=== PATIENT | female | born 1975 | race African-American/Black ===

== ENCOUNTER 2019-04-20 05:50 | Inpatient (IN) ==
[2019-04-20 07:09] LABS: Albumin 3.9 G/DL (3.4-5.0); Bilirubin,Total 0.5 MG/DL (0.2-1.0); Calcium 9.3 MG/DL (8.5-10.1); Osmolality,Calculated 279.4 MOS/KG (273-304); Total Protein 7.8 G/DL (6.4-8.3)
[2019-04-20] MEDS: LACTATED RINGERS 1,000 ML IV SCH ×2 (07:10→18:32)
[2019-04-20 07:29] LABS: Basophils # 0.1 10*3/uL (0.0-0.2); Basophils % 1.2 % (0.0-0.8); Eosinophils # 0.2 10*3/uL (0.0-0.87); Eosinophils % 3.9 % (0.00-10.9); Hematocrit 35.1 VOL% (35.7-47.0); Immature Granulocytes % 0.4 %; Immature Granulocytes Absolute 0.02 #; Lymphocytes # 2.2 10*3/uL (1.4-4.0); Lymphocytes % 42.4 % (21.3-54.2); Mean Corpuscular HGB Conc 28.5 GM/DL (32-36); Mean Corpuscular Volume 80.7 FL (87-102); Mean Platelet Volume 10.8 FL (9.6-12.0); Monocytes % 7.6 % (1.7-12.7); Neutrophils % 44.5 % (38.7-73.9); Platelet Count 392 T/CUMM (130-400); Red Blood Count 4.35 MC/CUMM (3.8-5.5); Red Cell Distribution Width 16.2 % (9.3-17.3); White Blood Count 5.2 T/CUMM (4-12)
[2019-04-20] MEDS ORDERED: DIAZEPAM 5 MG TABLET PO ONE (07:32)
[2019-04-20] MEDS ORDERED: FAMOTIDINE 20 MG TABLET PO ONE (07:32)
[2019-04-20 07:38] LABS: Hypochromasia 1+; Ovalocytes Slight; Platelet Estimate Adequate
[2019-04-20] MEDS ORDERED: DIAZEPAM 5 MG TABLET ONE (08:14)
[2019-04-20] MEDS ORDERED: FAMOTIDINE 20 MG TABLET ONE (08:14)
[2019-04-20] MEDS ORDERED: VASOPRESSIN 20 UNITS/ML VIAL ONE (08:26)
[2019-04-20] MEDS ORDERED: DEXAMETHASONE 4 MG/1 ML VIAL ONE ×3 (08:27→12:15)
[2019-04-20] MEDS ORDERED: BUPIVACAINE 0.5% 50 ML VIAL ONE (08:27)
[2019-04-20] MEDS ORDERED: BUPIVACAINE MPF 0.25% 30 ML VIAL ONE (08:46)
[2019-04-20] MEDS ORDERED: fentaNYL 100 MCG/2 ML VIAL ONE (08:46)
[2019-04-20] MEDS ORDERED: MIDAZOLAM 2 MG/2 ML VIAL ONE ×2 (08:46→12:15)
[2019-04-20] MEDS ORDERED: EPINEPHrine 1 MG/ML VIAL ONE (08:47)
[2019-04-20] MEDS ORDERED: cefOXitin 3,000 MG in SYRINGE 1 EACH IV ONE (09:00)
[2019-04-20] MEDS ORDERED: ceFAZolin 1,000 MG VIAL ONE (09:26)
[2019-04-20] MEDS ORDERED: SEVOFLURANE 1 UNIT/15 MINUTE INH ONE (12:14)
[2019-04-20] MEDS ORDERED: PROPOFOL 200 MG/20 ML VIAL IV ONE (12:14)
[2019-04-20] MEDS ORDERED: ePHEDrine 50 MG/ML AMP ONE (12:15)
[2019-04-20] MEDS ORDERED: ONDANSETRON 4 MG/2 ML VIAL ONE ×2 (12:15→12:38)
[2019-04-20] MEDS ORDERED: GLYCOPYRROLATE 0.4 MG/2 ML VIAL ONE ×2 (12:15)
[2019-04-20] MEDS ORDERED: KETOROLAC 30 MG/1 ML VIAL ONE (12:15)
[2019-04-20] MEDS ORDERED: SUFentanil 50 MCG/ML AMP ONE (12:15)
[2019-04-20] MEDS ORDERED: NEOSTIGMINE 10 MG/10 ML VIAL ONE (12:16)
[2019-04-20] MEDS ORDERED: LACTATED RINGERS 2,000 ML IV ONE (12:16)
[2019-04-20] MEDS ORDERED: PHENYLEPHRINE 1 MG/10 ML SYRINGE IV ONE (12:16)
[2019-04-20] MEDS ORDERED: ROCURONIUM 100 MG/10 ML VIAL IV ONE (12:16)
[2019-04-20 12:28] LABS: Apearance,Urine CLEAR (Clear); Bacteria,Urine Occasional /HPF (Few); Bilirubin,Urine Negative (Negative); Blood, Urine Small mg/dL (Negative); Glucose,Urine (UA) Negative (Negative); Ketones,Urine Negative (Negative); Mucus,Urine Occasional /LPF (Occasional); Nitrite,Urine Negative (Negative); Protein,Urine Negative; RBC,Urine 1 /HPF (0-4); Urine Color Yellow (Yellow); Urine Specific Gravity 1.013 (1.001-1.035); Urine Urobilinogen < 2.0 EU/DL (0.2-1.0); WBC,Urine 1 /HPF (0-6)
[2019-04-20] MEDS ORDERED: MEPERIDINE 25 MG/1 ML VIAL IV PRN (12:36)
[2019-04-20] MEDS ORDERED: ONDANSETRON 4 MG/2 ML VIAL IV PRN ×2 (12:36→13:42)
[2019-04-20] MEDS ORDERED: HYDROmorphone 2 MG/1 ML VIAL IV PRN (12:36)
[2019-04-20] MEDS ORDERED: PROMETHAZINE INJ 25 MG in SODIUM CHLORIDE 0.9% 50 ML IV PRN (12:36)
[2019-04-20] MEDS ORDERED: MEPERIDINE 25 MG/1 ML VIAL ONE (12:38)
[2019-04-20] MEDS ORDERED: PROMETHAZINE 25 MG/1 ML VIAL ONE (12:38)
[2019-04-20] MEDS ORDERED: BENZOCAINE/MENTHOL LOZENGE 18/BOX PO PRN (13:42)
[2019-04-20] MEDS ORDERED: BISACODYL 10 MG SUPP RECTAL PRN (13:42)
[2019-04-20] MEDS ORDERED: KETOROLAC 30 MG/1 ML VIAL IM SCH (13:42)
[2019-04-20] MEDS: HYDROmorphone 2 MG/1 ML VIAL IV PRN ×4 (14:00→22:10)
[2019-04-20] MEDS: KETOROLAC 30 MG/1 ML VIAL IV SCH ×2 (18:05→23:52)
[2019-04-20] MEDS: ceFAZolin 1,000 MG in SYRINGE 1 EACH IV SCH (18:12)
[2019-04-21] MEDS: LACTATED RINGERS 1,000 ML IV SCH ×2 (00:52→06:15)
[2019-04-21] MEDS: ceFAZolin 1,000 MG in SYRINGE 1 EACH IV SCH (01:51)
[2019-04-21 05:22] LABS: Basophils % 0.2 % (0.0-0.8); Hematocrit 25.3 VOL% (35.7-47.0); Hemoglobin 7.2 GM/DL (12.0-16.0); Immature Granulocytes % 0.6 %; Immature Granulocytes Absolute 0.05 #; Lymphocytes # 0.9 10*3/uL (1.4-4.0); Lymphocytes % 10.8 % (21.3-54.2); Mean Corpuscular HGB Conc 28.5 GM/DL (32-36); Mean Corpuscular Volume 81.1 FL (87-102); Mean Platelet Volume 9.9 FL (9.6-12.0); Monocytes % 5.8 % (1.7-12.7); Neutrophils % 82.6 % (38.7-73.9); Platelet Count 308 T/CUMM (130-400); Red Blood Count 3.12 MC/CUMM (3.8-5.5); Red Cell Distribution Width 16.3 % (9.3-17.3); White Blood Count 8.3 T/CUMM (4-12)
[2019-04-21] MEDS: KETOROLAC 30 MG/1 ML VIAL IV SCH ×2 (05:45→12:23)
[2019-04-21 05:58] LABS: Osmolality,Calculated 278.4 MOS/KG (273-304)
[2019-04-21 06:25] LABS: Anisocytosis Slight; Microcytosis 2+
[2019-04-21 06:27] LABS: Hypochromasia 1+; Ovalocytes Few; Polychromasia Slight
[2019-04-21 06:28] LABS: Platelet Estimate Normal
[2019-04-21] MEDS: amLODIPine 10 MG TABLET PO SCH (08:45)
[2019-04-21] MEDS: LISINOPRIL/HCTZ 20-25 MG TABLET PO SCH (08:46)
[2019-04-21] MEDS: PANTOPRAZOLE 40 MG TABLET PO SCH (09:23)
[2019-04-21] MEDS: FERROUS SULFATE 325 MG TABLET PO SCH ×2 (09:23→21:04)
[2019-04-21] MEDS: DOCUSATE SODIUM 100 MG CAPSULE PO PRN ×2 (09:23→21:04)
[2019-04-21] MEDS: IBUPROFEN 800 MG TABLET PO SCH (18:39)
[2019-04-21] MEDS: MAGNESIUM HYDROXIDE SUSP 30 ML UDCUP PO PRN (21:04)
[2019-04-22] MEDS: IBUPROFEN 800 MG TABLET PO SCH ×3 (02:01→18:47)
[2019-04-22] MEDS: DOCUSATE SODIUM 100 MG CAPSULE PO PRN ×2 (08:35→20:57)
[2019-04-22] MEDS: MAGNESIUM HYDROXIDE SUSP 30 ML UDCUP PO PRN ×2 (08:35→20:57)
[2019-04-22] MEDS: amLODIPine 10 MG TABLET PO SCH (08:35)
[2019-04-22] MEDS: LISINOPRIL/HCTZ 20-25 MG TABLET PO SCH (08:35)
[2019-04-22] MEDS: PANTOPRAZOLE 40 MG TABLET PO SCH (08:35)
[2019-04-22] MEDS: FERROUS SULFATE 325 MG TABLET PO SCH ×2 (08:35→20:51)
[2019-04-22] MEDS ORDERED: MAGNESIUM CITRATE 300 ML BOTTLE PO PRN (11:04)
[2019-04-22] MEDS ORDERED: METOCLOPRAMIDE 10 MG/2 ML VIAL IV PRN (13:45)
[2019-04-22] MEDS ORDERED: LACTATED RINGERS 1,000 ML IV SCH (14:00)
[2019-04-23] MEDS: IBUPROFEN 800 MG TABLET PO SCH (01:34)
[2019-04-23] MEDS: DOCUSATE SODIUM 100 MG CAPSULE PO PRN (10:00)
[2019-04-23] MEDS: FERROUS SULFATE 325 MG TABLET PO SCH (10:00)
[2019-04-23] MEDS: PANTOPRAZOLE 40 MG TABLET PO SCH (10:00)
[2019-04-23] MEDS: LISINOPRIL/HCTZ 20-25 MG TABLET PO SCH (10:18)
[2019-04-23] MEDS: amLODIPine 10 MG TABLET PO SCH (10:18)
== END 2019-04-23 10:20 | disposition home or self-care (01) | DRG 743 ==
LOC: N.OR 05:50 → N.SDSINP 05:53 → N.OB 07:23 → EDSTATUS 11:00 → N.OB 12:04
PROVIDERS: ADMIT Obstetrics & Gynecology; ATTEND Obstetrics & Gynecology